=== PATIENT | male | born 1980 | race Hispanic/Latino ===

== ENCOUNTER 2022-04-09 22:07 | Emergency (ER) | payer SELFPAY ==
[2022-04-09 23:07] LABS: HEMATOCRIT 39.8 % (39.0-50.0); HEMOGLOBIN 12.5 g/dl (14.0-18.0); IMMATURE GRANULOCYTES 0.1 % (0.0-5.0); MEAN CELL VOLUME 70.4 fL CALC (80.0-100.0); MEAN CORPUSCULAR HGB 22.1 pG CALC (26.0-32.0); MEAN CORPUSCULAR HGB CONC 31.4 g/dL CAL (32.0-36.0); NEUT# 6.57 thou/uL (1.82-7.42); RED BLOOD COUNT 5.65 mill/uL (4.70-6.10); RED CELL DISTRI WIDTH 14.5 % (11.5-15.5)
[2022-04-10] MEDS ORDERED: TESSALON PERLE100 MG PO (00:09)
[2022-04-10 00:38] VITALS: BP 114/75
== END 2022-04-10 00:38 | disposition home or self-care (01) | DRG 153 ==
LOC: ED 22:07
PROVIDERS: Family Medicine
DX: J06.9 Acute upper respiratory infection, unspecified (principal); Z20.822 Contact with and (suspected) exposure to COVID-19; R05.9 Cough, unspecified